=== PATIENT | male | born 1960 | race Caucasian/White ===

== ENCOUNTER 2020-08-20 22:07 | Emergency (ER) | payer OTHER ==
[~2020-08-20 22:07] MED LIST: DIFLUCAN 100MG100 MG PO; IVERMECTIN3 MG PO; PREDNISONE 20MG20 MG PO; ROBAXIN750 MG PO; ULTRAM50 MG PO; VISTARIL25 MG PO; [UNRECOGNIZED DRUG - OTHER] TOP
[2020-08-21] MEDS ORDERED: DICLOFENAC SODI75 MG PO (00:01)
== END 2020-08-21 00:16 | disposition home or self-care (01) ==
LOC: FER 22:07
DX: S60.222A Contusion of left hand, initial encounter (principal); E11.9 Type 2 diabetes mellitus without complications; F17.220 Nicotine dependence, chewing tobacco, uncomplicated; W01.0XXA Fall on same level from slipping, tripping and stumbling without subsequent striking against object, initial encounter; Y93.89 Activity, other specified; Y92.828 Other wilderness area as the place of occurrence of the external cause; Z79.84 Long term (current) use of oral hypoglycemic drugs
CPT/HCPCS: 73130; J1885